=== PATIENT | male | born 1940 | race Caucasian/White ===

== ENCOUNTER 2022-03-03 15:10 | Inpatient (IN) | payer MEDICARE, BC ==
[~2022-03-03] VITALS: Ht 190.5 cm; Wt 81.5 kg
[2022-03-03 16:41] LABS: Basophils # (auto) 0.1 10 ^3/uL (0-0.2); Basophils % (auto) 1.2 % (0.0-2.0); Eosinophils # (auto) 0.1 10 ^3/uL (0-0.8); Eosinophils % (auto) 1.7 % (0.0-7.0); Hematocrit 44.4 % (41.0-53.0); Hemoglobin 14.7 g/dL (13.5-17.5); Lymphocytes # (auto) 1.1 10 ^3/uL (0.4-5.4); Mean Corpuscular Hemoglobin 31.2 pg (28.0-32.0); Mean Corpuscular Hgb Conc. 33.2 g/dL (32.0-36.0); Mean Corpuscular Volume 93.9 fL (80.0-100.0); Monocytes # (auto) 0.7 10 ^3/uL (0-1.3); Neutrophils # (auto) 5.3 10 ^3/uL (1.6-8.6); Neutrophils % (auto) 72.1 % (37.0-80.0); Red Blood Cells 4.73 10^6/uL (4.5-5.90); Red Cell Distribution Width 14.2 % (11.8-14.3); White Blood Cell 7.4 10^3/uL (4.4-10.8)
[2022-03-03 17:02] LABS: Albumin 3.5 g/dL (3.4-5.0); BUN/Creatinine Ratio 23.7; Calcium 8.7 mg/dL (8.5-10.1); Potassium 4.4 mmol/L (3.5-5.1)
[2022-03-03 17:05] LABS: Bilirubin, Total 0.7 mg/dL (0.2-1.0); Total Protein 7.2 g/dL (6.4-8.2)
[2022-03-03] MEDS ORDERED: ASPirin 81 mg TAB PO ONE (17:15)
[2022-03-03] MEDS ORDERED: ACETAMINOPHEN 325 MG TAB PO PRN (20:30)
[2022-03-03] MEDS ORDERED: NITROGLYCERIN 0.4 MG SL TAB SL PRN (20:30)
[2022-03-03] MEDS ORDERED: DOCUSATE SOD 100 MG CAP PO PRN (20:30)
[2022-03-03] MEDS ORDERED: ONDANSETRON HCL 4 MG/2 ML VIAL IV PRN (20:30)
[2022-03-03] MEDS ORDERED: MORPHINE SULFATE INJ 2 MG/ml SYRG IV PRN (20:30)
[2022-03-03] MEDS ORDERED: ATORVASTATIN 20 MG TAB PO SCH (22:00)
[2022-03-04 03:15] LABS: Basophils # (auto) 0.1 10 ^3/uL (0-0.2); Basophils % (auto) 1.2 % (0.0-2.0); Eosinophils # (auto) 0.1 10 ^3/uL (0-0.8); Eosinophils % (auto) 1.6 % (0.0-7.0); Hematocrit 41.6 % (41.0-53.0); Hemoglobin 13.9 g/dL (13.5-17.5); Lymphocytes # (auto) 1.4 10 ^3/uL (0.4-5.4); Lymphocytes % (auto) 17.8 % (10.0-50.0); Mean Corpuscular Hemoglobin 31.5 pg (28.0-32.0); Mean Corpuscular Hgb Conc. 33.5 g/dL (32.0-36.0); Monocytes # (auto) 0.7 10 ^3/uL (0-1.3); Monocytes % (auto) 9.3 % (0.0-12.0); Neutrophils # (auto) 5.4 10 ^3/uL (1.6-8.6); Neutrophils % (auto) 70.1 % (37.0-80.0); Red Blood Cells 4.43 10^6/uL (4.5-5.90); Red Cell Distribution Width 14.2 % (11.8-14.3); White Blood Cell 7.8 10^3/uL (4.4-10.8)
[2022-03-04 03:35] LABS: BUN/Creatinine Ratio 26.8; Calcium 8.7 mg/dL (8.5-10.1); INR 1.08 (0.9-1.15); Partial Thromboplastin Time 26.7 sec (24.6-33.4); Potassium 3.7 mmol/L (3.5-5.1)
[2022-03-04] MEDS ORDERED: PANTOPRAZOLE 40 MG/10 ML VIAL INJ IV SCH (10:00)
[2022-03-04] MEDS ORDERED: ENOXAPARIN SOD 40 MG/0.4 ML SYRINGE SC SCH (10:00)
[2022-03-04] MEDS ORDERED: ASPirin 81 mg TAB PO SCH (10:00)
[2022-03-04 14:00] VITALS: BP 140/79
== END 2022-03-04 14:11 | disposition home or self-care (01) | DRG 159 ==
LOC: ER 15:10 → TELE 20:26
PROVIDERS: ADMIT Internal Medicine Cardiovascular Disease; ATTEND Student in an Organized Health Care Education/Training Program
DX: B37.0 Candidal stomatitis (principal); R07.89 Other chest pain; J02.8 Acute pharyngitis due to other specified organisms; K21.9 Gastro-esophageal reflux disease without esophagitis; Z83.3 Family history of diabetes mellitus; Z20.822 Contact with and (suspected) exposure to COVID-19
CPT/HCPCS: 36415; 71046; 80048; 80053; 84484; 85025; 85610; 85730; 87070; 87426; 87880; 93005; 96372; 96374; C9113; G0378

== ENCOUNTER → 2022-03-13 | Outpatient (CLI) | payer MEDICARE, BC ==
[~2022-03-13] MED LIST: IOHEXOL 350 MG/ML 100ML IJ ONE; READI-CAT 2 (BARIUM SULF)(VANILLA SMOOTHIE) 450ML ONE
[2022-03-13 09:05] VITALS: BP 136/83
[2022-03-13 11:08] VITALS: BP 151/81
== END | disposition home or self-care (01) ==
LOC: Rad HDHVI 09:00
PROVIDERS: ATTEND Internal Medicine Cardiovascular Disease
DX: R94.4 Abnormal results of kidney function studies (principal)
CPT/HCPCS: 36415; 70491; 71260; 74177; 82565; 84520; G0463

== ENCOUNTER 2022-03-22 13:32 | Inpatient (IN) | payer MEDICARE, OTHER, BC ==
[~2022-03-22] VITALS: Ht 30.5 cm; Wt 85.0 kg
[2022-03-22 15:25] VITALS: BP 120/69
[2022-03-22 15:32] VITALS: BP 120/69
[2022-03-22] MEDS ORDERED: ONDANSETRON HCL 4 MG/2 ML VIAL IV PRN (16:30)
[2022-03-22] MEDS ORDERED: HYDROcodone-ACET 5/325MG TAB PO PRN (16:30)
[2022-03-22] MEDS ORDERED: ACETAMINOPHEN 500 MG TAB PO PRN (16:30)
[2022-03-22] MEDS ORDERED: TRAM50TA2 PO (16:49)
[2022-03-22 17:00] VITALS: BP 126/68
[2022-03-22 18:39] LABS: Basophils # (auto) 0.1 10 ^3/uL (0-0.2); Basophils % (auto) 0.7 % (0.0-2.0); Eosinophils # (auto) 0.1 10 ^3/uL (0-0.8); Eosinophils % (auto) 1.5 % (0.0-7.0); Hematocrit 42.8 % (41.0-53.0); Lymphocytes # (auto) 0.9 10 ^3/uL (0.4-5.4); Lymphocytes % (auto) 12.4 % (10.0-50.0); Mean Corpuscular Hemoglobin 30.4 pg (28.0-32.0); Mean Corpuscular Hgb Conc. 32.7 g/dL (32.0-36.0); Mean Corpuscular Volume 92.9 fL (80.0-100.0); Monocytes # (auto) 0.8 10 ^3/uL (0-1.3); Monocytes % (auto) 10.9 % (0.0-12.0); Neutrophils # (auto) 5.5 10 ^3/uL (1.6-8.6); Neutrophils % (auto) 74.5 % (37.0-80.0); Nucleated Red Blood Cells % 0.1 %; Red Blood Cells 4.61 10^6/uL (4.5-5.90); Red Cell Distribution Width 13.7 % (11.8-14.3); White Blood Cell 7.4 10^3/uL (4.4-10.8)
[2022-03-22] MEDS: SODIUM CHLORIDE 0.9% 1,000 ML IV SCH (18:45)
[2022-03-22] MEDS: Ensure Enlive Strawberry 8oz Bottle PO SCH (18:45)
[2022-03-22] MEDS: cefTRIAXone 1GM/50ML D5W 50 ML IV SCH (18:45)
[2022-03-22 18:49] LABS: Potassium 4.7 mmol/L (3.5-5.1)
[2022-03-22 18:52] LABS: BUN/Creatinine Ratio 28.1
[2022-03-22 18:53] LABS: INR 1.11 (0.9-1.15)
[2022-03-22 18:55] LABS: Bilirubin, Total 0.8 mg/dL (0.2-1.0); Total Protein 6.7 g/dL (6.4-8.2)
[2022-03-22 20:00] VITALS: BP 131/74
[2022-03-22 22:00] VITALS: BP 131/72
[2022-03-22] MEDS ORDERED: MELATONIN 5 MG TAB PO ONE (22:00)
[2022-03-22] MEDS: metroNIDAZOLE 500MG/100ML 100 ML IV SCH (22:00)
[2022-03-23 05:00] VITALS: BP 131/74
[2022-03-23] MEDS: SODIUM CHLORIDE 0.9% 1,000 ML IV SCH ×2 (05:54→21:58)
[2022-03-23] MEDS: metroNIDAZOLE 500MG/100ML 100 ML IV SCH ×3 (05:54→21:58)
[2022-03-23 09:00] VITALS: BP 144/84
[2022-03-23] MEDS: cefTRIAXone 1GM/50ML D5W 50 ML IV SCH (10:52)
[2022-03-23] MEDS: PANTOPRAZOLE 40 MG/10 ML VIAL INJ IV SCH (10:52)
[2022-03-23] MEDS: MORPHINE SULFATE INJ 2 MG/ml SYRG IV PRN ×2 (10:53→21:58)
[2022-03-23] MEDS: Ensure Enlive Strawberry 8oz Bottle PO SCH ×3 (10:54→18:24)
[2022-03-23 13:00] VITALS: BP 144/76
[2022-03-23 17:00] VITALS: BP 113/70
[2022-03-23 22:00] VITALS: BP 125/69
[2022-03-24 05:00] VITALS: BP 127/72
[2022-03-24] MEDS: metroNIDAZOLE 500MG/100ML 100 ML IV SCH ×3 (05:28→21:35)
[2022-03-24] MEDS: MORPHINE SULFATE INJ 2 MG/ml SYRG IV PRN (05:29)
[2022-03-24 08:00] VITALS: BP 152/79
[2022-03-24] MEDS: SODIUM CHLORIDE 0.9% 1,000 ML IV SCH ×2 (08:30→21:35)
[2022-03-24] MEDS: Ensure Enlive Strawberry 8oz Bottle PO SCH ×3 (10:27→18:17)
[2022-03-24] MEDS: cefTRIAXone 1GM/50ML D5W 50 ML IV SCH (10:27)
[2022-03-24] MEDS: PANTOPRAZOLE 40 MG/10 ML VIAL INJ IV SCH (10:28)
[2022-03-24 12:00] VITALS: BP 118/73
[2022-03-24] MEDS ORDERED: FLUCONAZOLE 200MG/100ML 100 ML IV ONE (13:00)
[2022-03-24] MEDS ORDERED: SUCRALFATE 1 GM/10 ML ORAL SUSP GT ONE (13:00)
[2022-03-24] MEDS: SUCRALFATE 1 GM/10 ML ORAL SUSP GT SCH (15:57)
[2022-03-24 16:00] VITALS: BP 129/75
[2022-03-24 22:00] VITALS: BP 126/77
[2022-03-25] MEDS: SUCRALFATE 1 GM/10 ML ORAL SUSP GT SCH ×3 (04:27→17:00)
[2022-03-25 04:51] LABS: Urine Bacteria NONE SEEN /hpf (None Seen); Urine Blood Negative /uL (Negative); Urine Hyaline Cast FEW /lpf (0 - 2); Urine Mucus FEW (None Seen); Urine Specific Gravity 1.024 (1.001-1.035); Urine WBC 1 /hpf (0 - 3)
[2022-03-25] MEDS: metroNIDAZOLE 500MG/100ML 100 ML IV SCH ×3 (05:12→21:13)
[2022-03-25 05:47] VITALS: BP 143/61
[2022-03-25 05:48] LABS: Basophils # (auto) 0.1 10 ^3/uL (0-0.2); Eosinophils # (auto) 0.1 10 ^3/uL (0-0.8); Eosinophils % (auto) 1.5 % (0.0-7.0); Hematocrit 40.5 % (41.0-53.0); Hemoglobin 13.8 g/dL (13.5-17.5); Lymphocytes # (auto) 1.2 10 ^3/uL (0.4-5.4); Mean Corpuscular Hemoglobin 31.7 pg (28.0-32.0); Mean Corpuscular Hgb Conc. 34.1 g/dL (32.0-36.0); Mean Corpuscular Volume 92.9 fL (80.0-100.0); Monocytes # (auto) 0.7 10 ^3/uL (0-1.3); Monocytes % (auto) 11.4 % (0.0-12.0); Neutrophils # (auto) 4.4 10 ^3/uL (1.6-8.6); Neutrophils % (auto) 67.1 % (37.0-80.0); Red Blood Cells 4.36 10^6/uL (4.5-5.90); Red Cell Distribution Width 13.7 % (11.8-14.3); White Blood Cell 6.5 10^3/uL (4.4-10.8)
[2022-03-25] MEDS: Ensure Enlive Strawberry 8oz Bottle PO SCH ×3 (08:00→17:46)
[2022-03-25 09:00] VITALS: BP 140/89
[2022-03-25] MEDS: cefTRIAXone 1GM/50ML D5W 50 ML IV SCH (09:25)
[2022-03-25] MEDS: PANTOPRAZOLE 40 MG/10 ML VIAL INJ IV SCH (09:25)
[2022-03-25] MEDS: SODIUM CHLORIDE 0.9% 1,000 ML IV SCH ×2 (11:10→16:43)
[2022-03-25] MEDS: FLUCONAZOLE 200MG/100ML 100 ML IV SCH (11:29)
[2022-03-25] MEDS: MORPHINE SULFATE INJ 2 MG/ml SYRG IV PRN (11:30)
[2022-03-25 12:50] VITALS: BP 149/81
[2022-03-25 16:51] VITALS: BP 146/80
[2022-03-25] MEDS ORDERED: NALOXONE HCL 0.4 MG/ML VIAL ONE (16:54)
[2022-03-25] MEDS ORDERED: FLUMAZENIL 0.1 MG/ML INJ 10ML MDV IV ONE (16:54)
[2022-03-25] MEDS ORDERED: EPINEPHrine HCL 1 MG/10 ML SYRG ONE (16:55)
[2022-03-25] MEDS ORDERED: SODIUM CHLORIDE LOCK 10 ML ONE (17:00)
[2022-03-25] MEDS ORDERED: LIDOCAINE VISCOUS 2% 15ML UD ONE (17:04)
[2022-03-25] MEDS ORDERED: SIMETHICONE 40 MG/0.6 ML ORAL DROP ONE (17:24)
[2022-03-25] MEDS: diphenhdrAMINE HCL 50 MG/1 ML VL ONE ×2 (17:36→17:39)
[2022-03-25] MEDS: MIDAZOLAM HCL 5 MG/ML-1ML VIAL ONE ×3 (17:36→17:46)
[2022-03-25] MEDS: fentaNYL CITRATE 100 MCG/2 ML VL ONE ×4 (17:36→17:53)
[2022-03-25] MEDS: NYSTATIN (MOUTH-THROAT) 500,000 UNITS/5 ML SUSP MT SCH (21:13)
[2022-03-25 22:00] VITALS: BP 149/86
[2022-03-26 05:07] VITALS: BP 145/76
[2022-03-26] MEDS: metroNIDAZOLE 500MG/100ML 100 ML IV SCH ×3 (05:33→21:19)
[2022-03-26] MEDS: NYSTATIN (MOUTH-THROAT) 500,000 UNITS/5 ML SUSP MT SCH ×4 (05:33→21:19)
[2022-03-26] MEDS: SUCRALFATE 1 GM/10 ML ORAL SUSP GT SCH ×3 (07:04→16:28)
[2022-03-26] MEDS: cefTRIAXone 1GM/50ML D5W 50 ML IV SCH (08:18)
[2022-03-26] MEDS: PANTOPRAZOLE 40 MG/10 ML VIAL INJ IV SCH (08:18)
[2022-03-26] MEDS: Ensure Enlive Strawberry 8oz Bottle PO SCH ×3 (08:23→17:33)
[2022-03-26 09:03] VITALS: BP 147/80
[2022-03-26] MEDS: FLUCONAZOLE 200MG/100ML 100 ML IV SCH (09:55)
[2022-03-26 13:12] VITALS: BP 140/78
[2022-03-26] MEDS: SODIUM CHLORIDE 0.9% 1,000 ML IV SCH ×2 (13:50→21:28)
[2022-03-26] MEDS: MORPHINE SULFATE INJ 2 MG/ml SYRG IV PRN ×2 (16:29→21:20)
[2022-03-26 16:32] VITALS: BP 140/87
[2022-03-26 22:00] VITALS: BP 147/93
[2022-03-27 05:00] VITALS: BP 135/81
[2022-03-27] MEDS: NYSTATIN (MOUTH-THROAT) 500,000 UNITS/5 ML SUSP MT SCH ×4 (05:41→21:57)
[2022-03-27] MEDS: metroNIDAZOLE 500MG/100ML 100 ML IV SCH ×3 (05:41→21:57)
[2022-03-27] MEDS: SUCRALFATE 1 GM/10 ML ORAL SUSP GT SCH ×3 (05:41→17:29)
[2022-03-27] MEDS: Ensure Enlive Strawberry 8oz Bottle PO SCH ×3 (08:38→17:30)
[2022-03-27 09:00] VITALS: BP 147/82
[2022-03-27] MEDS: PANTOPRAZOLE 40 MG/10 ML VIAL INJ IV SCH (09:23)
[2022-03-27] MEDS: cefTRIAXone 1GM/50ML D5W 50 ML IV SCH (09:23)
[2022-03-27] MEDS: FLUCONAZOLE 200MG/100ML 100 ML IV SCH (09:23)
[2022-03-27] MEDS: MORPHINE SULFATE INJ 2 MG/ml SYRG IV PRN ×3 (09:40→21:57)
[2022-03-27 13:00] VITALS: BP 146/84
[2022-03-27 16:49] VITALS: BP 151/89
[2022-03-27] MEDS: SODIUM CHLORIDE 0.9% 1,000 ML IV SCH (16:57)
[2022-03-27 22:00] VITALS: BP 123/72
[2022-03-28 05:00] VITALS: BP 140/85
[2022-03-28] MEDS: NYSTATIN (MOUTH-THROAT) 500,000 UNITS/5 ML SUSP MT SCH ×4 (06:09→21:58)
[2022-03-28] MEDS: SUCRALFATE 1 GM/10 ML ORAL SUSP GT SCH ×3 (06:09→17:37)
[2022-03-28] MEDS: metroNIDAZOLE 500MG/100ML 100 ML IV SCH ×3 (06:10→21:54)
[2022-03-28 08:00] VITALS: BP 145/80
[2022-03-28 09:00] VITALS: BP 145/83
[2022-03-28] MEDS: MORPHINE SULFATE INJ 2 MG/ml SYRG IV PRN ×2 (09:00→16:08)
[2022-03-28] MEDS: cefTRIAXone 1GM/50ML D5W 50 ML IV SCH (09:01)
[2022-03-28] MEDS: PANTOPRAZOLE 40 MG/10 ML VIAL INJ IV SCH (09:01)
[2022-03-28] MEDS: Ensure Enlive Strawberry 8oz Bottle PO SCH ×3 (09:01→18:00)
[2022-03-28] MEDS: FLUCONAZOLE 200MG/100ML 100 ML IV SCH (10:16)
[2022-03-28 13:02] VITALS: BP 149/90
[2022-03-28] MEDS: SODIUM CHLORIDE 0.9% 1,000 ML IV SCH (13:47)
[2022-03-28 17:31] VITALS: BP 152/80
[2022-03-28 22:00] VITALS: BP 129/79
[2022-03-29] MEDS: MORPHINE SULFATE INJ 2 MG/ml SYRG IV PRN ×4 (00:17→22:01)
[2022-03-29 05:00] VITALS: BP 148/91
[2022-03-29] MEDS: SODIUM CHLORIDE 0.9% 1,000 ML IV SCH ×2 (05:45→08:30)
[2022-03-29] MEDS: metroNIDAZOLE 500MG/100ML 100 ML IV SCH ×3 (06:18→22:00)
[2022-03-29] MEDS: SUCRALFATE 1 GM/10 ML ORAL SUSP GT SCH ×3 (06:18→18:09)
[2022-03-29] MEDS: NYSTATIN (MOUTH-THROAT) 500,000 UNITS/5 ML SUSP MT SCH ×4 (06:18→22:00)
[2022-03-29 09:00] VITALS: BP 139/84
[2022-03-29] MEDS: cefTRIAXone 1GM/50ML D5W 50 ML IV SCH (09:27)
[2022-03-29] MEDS: FLUCONAZOLE 200MG/100ML 100 ML IV SCH (09:28)
[2022-03-29] MEDS: PANTOPRAZOLE 40 MG/10 ML VIAL INJ IV SCH (09:28)
[2022-03-29] MEDS: Ensure Enlive Strawberry 8oz Bottle PO SCH ×3 (09:30→18:09)
[2022-03-29 13:00] VITALS: BP 137/86
[2022-03-29 17:00] VITALS: BP 144/76
[2022-03-29 22:00] VITALS: BP 126/74
[2022-03-30] MEDS: SODIUM CHLORIDE 0.9% 1,000 ML IV SCH ×2 (01:31→08:39)
[2022-03-30 05:00] VITALS: BP 150/86
[2022-03-30] MEDS: metroNIDAZOLE 500MG/100ML 100 ML IV SCH ×2 (05:14→13:05)
[2022-03-30] MEDS: NYSTATIN (MOUTH-THROAT) 500,000 UNITS/5 ML SUSP MT SCH ×2 (06:00→11:57)
[2022-03-30] MEDS: MORPHINE SULFATE INJ 2 MG/ml SYRG IV PRN ×2 (06:56→13:10)
[2022-03-30] MEDS: SUCRALFATE 1 GM/10 ML ORAL SUSP GT SCH ×2 (06:59→11:30)
[2022-03-30] MEDS: Ensure Enlive Strawberry 8oz Bottle PO SCH ×2 (08:38→11:58)
[2022-03-30] MEDS: cefTRIAXone 1GM/50ML D5W 50 ML IV SCH (08:38)
[2022-03-30] MEDS: FLUCONAZOLE 200MG/100ML 100 ML IV SCH (08:39)
[2022-03-30] MEDS: PANTOPRAZOLE 40 MG/10 ML VIAL INJ IV SCH (08:39)
[2022-03-30 08:41] VITALS: BP 145/80
[2022-03-30 13:00] VITALS: BP 131/86
[2022-03-30 14:05] VITALS: BP 131/86
== END 2022-03-30 16:28 | disposition home or self-care (01) | DRG 375 ==
LOC: TELE-EAST 14:20 → EAST 16:40
PROVIDERS: ADMIT Internal Medicine; ATTEND Internal Medicine Cardiovascular Disease
PROC: 0DB68ZX Excision of Stomach, Via Natural or Artificial Opening Endoscopic, Diagnostic (ICD-10-PCS; 2022-03-25)
PROC: 0DB48ZX Excision of Esophagogastric Junction, Via Natural or Artificial Opening Endoscopic, Diagnostic (ICD-10-PCS; 2022-03-25)
PROC: 0DB98ZX Excision of Duodenum, Via Natural or Artificial Opening Endoscopic, Diagnostic (ICD-10-PCS; principal; 2022-03-25 17:30)
DX: C15.9 Malignant neoplasm of esophagus, unspecified (principal); R64 Cachexia; K80.20 Calculus of gallbladder without cholecystitis without obstruction; K21.00 Gastro-esophageal reflux disease with esophagitis, without bleeding; R13.12 Dysphagia, oropharyngeal phase; K59.00 Constipation, unspecified; I10 Essential (primary) hypertension; Z20.822 Contact with and (suspected) exposure to COVID-19; K29.70 Gastritis, unspecified, without bleeding; K22.9 Disease of esophagus, unspecified; Z82.49 Family history of ischemic heart disease and other diseases of the circulatory system; Z68.22 Body mass index [BMI] 22.0-22.9, adult
CPT/HCPCS: 36415; 43239; 71045; 76705; 78226; 80053; 81001; 82105; 82378; 83615; 84132; 85025; 85610; 85730; 86850; 86900; 86901; C9113; G0378; J0696; J1450; J2250; J3490